=== PATIENT | female | born 1990 | race Hispanic/Latino ===

== ENCOUNTER 2017-10-20 10:48 | Inpatient (IN) | payer BC, MEDICAID ==
[~2017-10-20] VITALS: Ht 152.4 cm; Wt 63.0 kg
[2017-10-20 11:23] LABS: APPEARANCE,URINE Cloudy (CLEAR); BILIRUBIN,URINE Negative (NEGATIVE); COLOR,URINE Dark Yellow (YELLOW); GLUCOSE, URINE (UA) Negative (NEGATIVE); KETONES,URINE Negative (NEGATIVE); LEUKOCYTE ESTERASE ,URINE Large (NEGATIVE); NITRATE,URINE Negative (NEGATIVE); OCCULT BLOOD,URINE Negative (NEGATIVE); PROTEIN,URINE Trace (NEGATIVE)
[2017-10-20 11:36] LABS: BACTERIA,URINE Moderate /HPF (None Seen); RBC,URINE 0-1 /HPF (0-1); SQUAMOUS EPITHELIAL CELL,UR Few /HPF (0-2); WBC,URINE >100 /HPF (0-1)
[2017-10-20 11:37] LABS: MUCUS,URINE Few LPF (None Seen)
[2017-10-20] MEDS ORDERED: LACTATED RINGERS 1000ML 1,000 ML IV ONE (11:50)
[2017-10-20] MEDS ORDERED: OXYTOCIN 10 USP UNITS/ML ONE (11:50)
[2017-10-20] MEDS ORDERED: OXYTOCIN-LR 20 UNITS/1000 ML 1,000 ML IV SCH (12:45)
[2017-10-20 13:36] LABS: HEMATOCRIT 40.6 % (36-48); MEAN CORPUSCULAR HEMOGLOBIN 30.4 pg (27.0-33.0); MEAN CORPUSCULAR HGB CONC 34.5 g/dL (32.0-36.0); MEAN CORPUSCULAR VOLUME 88.1 fL (79-99); PLATELET COUNT (AUTO) 249 K/uL (130-400); RED BLOOD CELL COUNT(AUTO) 4.61 MIL/uL (4.00-5.50); RED CELL DISTRIBUTION WIDTH 13.2 % (11.0-15.5); WHITE BLOOD COUNT (AUTO) 8.1 K/uL (4.8-10.8)
[2017-10-20] MEDS ORDERED: DINOPROSTONE 10 MG VAGINAL SUPP VG ONE ×2 (13:45→18:30)
[2017-10-20] MEDS ORDERED: DINOPROSTONE 10 MG VAGINAL SUPP ONE (17:29)
[2017-10-20] MEDS ORDERED: EPHEDRINE SULFATE 50 MG/ML AMPULE IVP PRN (17:30)
[2017-10-20] MEDS ORDERED: LACTATED RINGERS 500 ML 500 ML IV PRN (17:30)
[2017-10-20] MEDS ORDERED: NALOXONE HCL 0.4 MG/1 ML ML IV PRN (17:30)
[2017-10-20] MEDS: LACTATED RINGERS 1000ML 1,000 ML IV PRN (20:38)
[2017-10-20] MEDS: BUTORPHANOL TARTRATE 2 MG/ML IVP PRN (23:47)
[2017-10-21] MEDS: LACTATED RINGERS 1000ML 1,000 ML IV PRN (00:18)
[2017-10-21] MEDS ORDERED: OXYTOCIN 10 USP UNITS/ML ONE ×2 (03:34→10:21)
[2017-10-21] MEDS ORDERED: LIDOCAINE HCL 2% 20ML ONE (03:34)
[2017-10-21] MEDS ORDERED: OXYTOCIN 10 USP UNITS/ML 20 UNIT in LACTATED RINGERS 1000ML 1,000 ML IV SCH (04:00)
[2017-10-21] MEDS: BUTORPHANOL TARTRATE 2 MG/ML IVP PRN (06:21)
[2017-10-21 08:19] LABS: HEPATITIS Bs ANTIGEN SCREEN P Negative (Negative)
[2017-10-21] MEDS ORDERED: MEASLES/MUMPS/RUBELLA VACCINE, LIVE 0.5 ML/VIAL SQ PRN (09:45)
[2017-10-21] MEDS ORDERED: WITCH HAZEL 1 PAD TP PRN (09:45)
[2017-10-21] MEDS ORDERED: DIPH,PERTUSS(ACELL),TET VAC/PF 0.5 ML VIAL IM PRN (09:45)
[2017-10-21] MEDS ORDERED: ACETAMINOPHEN 325 MG TAB PO PRN (09:45)
[2017-10-21] MEDS ORDERED: BENZOCAINE/LANOLIN/ALOE VERA 60 ML AEROSOL TP PRN (09:45)
[2017-10-21] MEDS ORDERED: DIPH,PERTUSS(ACELL),TET VAC/PF 0.5 ML VIAL IM SCH (10:30)
[2017-10-21 11:25] VITALS: BP 89/55
[2017-10-21] MEDS ORDERED: PREN-154 PO (11:52)
[2017-10-21] MEDS ORDERED: FERR-82 PO (11:52)
[2017-10-21] MEDS ORDERED: FLU VACC QS2017-18 36MOS UP/PF 60 MCG/0.5 ML ML IM SCH (12:00)
[2017-10-21] MEDS ORDERED: LANOLIN 30GM OINTMENT TP ONE (12:34)
[2017-10-21] MEDS: IBUPROFEN 600 MG TABLET PO PRN ×2 (12:37→20:56)
[2017-10-21 15:41] VITALS: BP 89/49
[2017-10-21 20:20] VITALS: BP 93/57
[2017-10-21] MEDS: DOCUSATE SODIUM 100 MG CAP PO SCH (20:52)
[2017-10-22 00:30] VITALS: BP 96/57
[2017-10-22] MEDS: IBUPROFEN 600 MG TABLET PO PRN ×2 (03:21→08:46)
[2017-10-22 03:57] VITALS: BP 80/41
[2017-10-22 04:06] VITALS: BP 82/42
[2017-10-22 07:50] VITALS: BP 94/60
[2017-10-22] MEDS: DOCUSATE SODIUM 100 MG CAP PO SCH (08:43)
[2017-10-22 11:27] VITALS: BP 84/53
== END 2017-10-22 12:55 | disposition home or self-care (01) | DRG 775 ==
LOC: LDH 10:48 → OBSVTOIN 12:35 → WSH 10-21 11:25
PROVIDERS: ADMIT Obstetrics & Gynecology; ATTEND Obstetrics & Gynecology
PROC: 3E0134Z Introduction of Serum, Toxoid and Vaccine into Subcutaneous Tissue, Percutaneous Approach (ICD-10-PCS; principal; 2017-10-21)
PROC: 10E0XZZ Delivery of Products of Conception, External Approach (ICD-10-PCS; 2017-10-21)
PROC: 0KQM0ZZ Repair Perineum Muscle, Open Approach (ICD-10-PCS; 2017-10-21)
PROC: 3E0234Z Introduction of Serum, Toxoid and Vaccine into Muscle, Percutaneous Approach (ICD-10-PCS; 2017-10-21)
PROC: 10907ZC Drainage of Amniotic Fluid, Therapeutic from Products of Conception, Via Natural or Artificial Opening (ICD-10-PCS; 2017-10-21)
PROC: 3E0P7VZ Introduction of Hormone into Female Reproductive, Via Natural or Artificial Opening (ICD-10-PCS; 2017-10-21)
DX: O36.8130 Decreased fetal movements, third trimester, not applicable or unspecified (principal); O41.03X0 Oligohydramnios, third trimester, not applicable or unspecified; Z3A.40 40 weeks gestation of pregnancy; O70.1 Second degree perineal laceration during delivery; Z23 Encounter for immunization; Z37.0 Single live birth
CPT/HCPCS: 36415; 76819; 81001; 85027; 86592; 86850; 86900; 86901; 87340; 90707; 90715; G0378; J0595; J2590; J3490; J7120